=== PATIENT | male | born 1965 | race Caucasian/White ===

== ENCOUNTER 2018-09-01 01:41 | Emergency (ER) | payer BC ==
[~2018-09-01] VITALS: Ht 172.7 cm; Wt 90.7 kg
[2018-09-01 01:47] VITALS: Ht 172.7 cm; Wt 90.7 kg
[2018-09-01 03:45] VITALS: BP 132/76
== END 2018-09-01 03:45 | disposition home or self-care (01) ==
LOC: ED 01:41
DX: S93.402A Sprain of unspecified ligament of left ankle, initial encounter (principal); I10 Essential (primary) hypertension; E11.9 Type 2 diabetes mellitus without complications; X50.1XXA Overexertion from prolonged static or awkward postures, initial encounter; Y93.89 Activity, other specified; Y92.89 Other specified places as the place of occurrence of the external cause; Y99.8 Other external cause status